=== PATIENT | female | born 1970 | race Caucasian/White ===

== ENCOUNTER 2024-03-29 09:01 | Outpatient (CLI) | payer OTHER | END 2024-03-29 09:03 | disposition home or self-care (01) | LOC: SONOGRAMA 09:01 | PROVIDERS: ATTEND Pathology Anatomic Pathology & Clinical Pathology | DX: D34 Benign neoplasm of thyroid gland (principal); E06.3 Autoimmune thyroiditis; E07.89 Other specified disorders of thyroid; E04.1 Nontoxic single thyroid nodule ==